=== PATIENT | male | born 2000 | race Caucasian/White ===

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

== ENCOUNTER 2021-09-12 13:14 | Emergency (ER) | payer BC ==
--- NOTE | 2021-09-12 14:10 | XRAY ---
Indication: Short of breath. Anxiety. Comparison: None Portable chest demonstrates mild bilateral mid to lower lung hazy interstitial alveolar opacities without consolidation/large effusion. Heart not enlarged. Bony thorax intact with mild dextroscoliosis.
[2021-09-12] MEDS ORDERED: Ativan 1 MG PO ONE (14:19)
[2021-09-12] MEDS ORDERED: Sodium Chloride 0.9% 1000 ML 1,000 ML IV STA (14:19)
[2021-09-12] MEDS ORDERED: Ativan 1 MG ONE (14:26)
[2021-09-12] MEDS ORDERED: Sodium Chloride 0.9% 1000 ML 1,000 ML ONE (14:26)
[2021-09-12 14:37] LABS: Absolute Neutrophil Ct (ANC) 4.97 (1.4-6.9); Basophil (Absolute #) 0.02 (0-0.4); Eosinophil % 0.7 % (0.00-5.0); Eosinophil (Absolute #) 0.05 (0-0.5); Hematocrit 46.2 % (42-50); Hemoglobin 16.1 gm/dl (12.5-18.0); Lymphocyte (Absolute #) 1.39 (1.0-4.6); Lymphocytes % 20.4 % (24.0-44.0); Mean Cell Volume 81.8 fl (78-100); Mean Corpuscular Hemoglobin 28.5 pg (26-32); Mean Corpuscular Hgb Concent. 34.8 g/dl (32-36); Mean Platelet Volume 8.7 fl (7.5-11.0); Monocyte (Absolute #) 0.39 (0.0-1.3); Monocytes % 5.7 % (0.0-12.0); Neutrophil % 72.9 % (36.0-66.0); Platelet Count 349 K/mm3 (150-450); Red Blood Count 5.65 M/mm3 (4.1-5.6); White Blood Count 6.8 K/mm3 (4.0-10.5)
[2021-09-12 14:55] LABS: COVID AG -BINAX NOW RAPID TEST NEGATIVE (NEGATIVE)
[2021-09-12 15:03] LABS: Amphetamine,Urine NEGATIVE (NEGATIVE); Barbiturate,Urine NEGATIVE (NEGATIVE); Benzodiazepine,Urine NEGATIVE (NEGATIVE); Cocaine,Urine NEGATIVE (NEGATIVE); Methadone,Urine NEGATIVE (NEGATIVE); Opiate,Urine NEGATIVE (NEGATIVE); PCP,Urine NEGATIVE (NEGATIVE); THC,Urine NEGATIVE (NEGATIVE)
[2021-09-12 15:20] VITALS: O2SAT 97
[2021-09-12 15:26] LABS: ALBUMIN 4.3 g/dL (3.5-5.0); ALKALINE PHOSPHATASE 70 U/L (38-126); ANION GAP 13.6 MEQ/L (5-15); BLOOD UREA NITROGEN 8 mg/dL (9-20); CHLORIDE 102 mmol/L (98-107); Carbon Dioxide 27 mmol/L (22-30); Creatinine 1 0.74 mg/dL (0.66-1.25); EST GLOMERULAR FILTRATION RATE > 60.0 ML/MIN; Glucose 87 mg/dL (74-106); MAGNESIUM 1.8 mg/dL (1.6-2.3); Potassium 3.9 mmol/L (3.5-5.1); SGOT/AST 25 U/L (17-59); SGPT/ALT 35 U/L (0-50); SODIUM 139 mmol/L (137-145); Total Protein 7.3 g/dL (6.3-8.2)
[2021-09-12 16:41] VITALS: BP 128/79; PULSE 95
--- NOTE | 2021-09-12 16:46 | XRAY ---
Indication: Short of breath. Elevated d-dimer. Anxiety. Multiple contiguous axial images obtained through the chest using 100 cc Isovue 370 contrast and PE protocol. Comparison: None There is good opacification of the pulmonary arteries to include the lobar and segmental branches. No pulmonary embolus. Heart not enlarged. Aorta is normal in course and caliber. No pathologic mediastinal/hilar lymphadenopathy. Lungs demonstrates mild bilateral dependent atelectasis greatest in the lung bases. No suspicious pulmonary mass, infiltrate, consolidation, effusion, or pneumothorax. Bony thorax intact. Limited upper abdomen demonstrates fatty liver. Impression: 1. Negative pulmonary embolus. No acute cardiopulmonary abnormalities. 2. Fatty liver.
--- NOTE | 2021-09-12 17:25 | ERPHSYRPT ---
- History of Present Illness Time Seen by Provider: 09/12/21 13:22 Source: patient Exam Limitations: no limitations Patient Subjective Stated Complaint: pt reports anxiety beginning this morning shortly after he arrived at work, states at 0815 began to have trouble breathing and his chest felt tight, pt decided it was best not to drive home and went to his brothers to rest. pt states after about an hour he was not feeling better so his brother drove him home, pt reports once he got home he began having diffculty with arm numbness and trouble walking upstairs to his room, reports his brother was holding him up using his right arm and now complains of some right upper arm and shoulder pain, pt family is concerned so pt is here for eval Triage Nursing Assessment: pt is aox3, appears in no acute distress, pupils perrl, afebrile, resps easy and non labored, cap refill < 3 seconds, radial pulses strong and equal, pt tachycardis, pt skin pink warm dry. Physician History: 21 years old with a history of anxiety presented in the ER after he started to feel shortness of breath, throat closing sensation, chest tightness pressure when he was at work almost 2 hours ago. Patient reports he went home and it did not go away and started to feel tingly sensations in the fingers and lower extremities. He also started to feel weak all over and was having difficulty ambulation with falls. Denies any focal weakness but all over. Patient reports having history of anxiety and a lot of stress lately. Patient reports h takes Risperdal and fluoxetine and is out of respite all for almost 1 week. Timing/Duration: today Activities at Onset: activity Severity of Dyspnea-Max: moderate Severity of Dyspnea-Current: mild Modifying Factors: Worsens With: activity Associated Symptoms: anxiety, chest pain/discomfort, dizziness, lightheadedness, tightness Allergies/Adverse Reactions: amoxicillin Allergy (Intermediate, Verified 09/12/21 13:34) Rash Home Medications: Dexmethylphenidate HCl [Dexmethylphenidate HCl ER] 20 mg PO DAILY 09/12/21 [History] Fluoxetine HCl 20 mg [Prozac 20 MG] 20 mg PO DAILY 09/12/21 [History] risperiDONE [Risperdal] 0.5 mg PO DAILY 09/12/21 [History] Hx Tetanus, Diphtheria Vaccination/Date Given: Yes Hx Influenza Vaccination/Date Given: No Hx Pneumococcal Vaccination/Date Given: No Immunizations Up to Date: Yes Travel Risk - International Travel Have you traveled outside of the country in past 3 weeks: No - Coronavirus Screening Are you exhibiting any of the following symptoms?: No Close contact with a COVID-19 positive Pt in past 14-21 Days: No - Vaccine Status Have you recieved a Covid-19 vaccination: Yes 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 - Vaccination Dates Date of 2cond Vaccination (if applicable): unk - Review of Systems Constitutional: Fatigue, Weakness Eyes: No Symptoms Ears, Nose, & Throat: No Symptoms Respiratory: Dyspnea Cardiac: Chest Pain, Palpitations Abdominal/Gastrointestinal: No Symptoms Genitourinary Symptoms: No Symptoms Musculoskeletal: No Symptoms Skin: No Symptoms Neurological: Dizziness Psychological: No Symptoms Endocrine: No Symptoms Hematologic/Lymphatic: No Symptoms Immunological/Allergic: No Symptoms - Past Medical History Pertinent Past Medical History: Yes Psycho-Social History: Anxiety, Bipolar, Depression Male Reproductive Disorders: No Pertinent History Other Medical History: acne - Past Surgical History Past Surgical History: No - Social History Smoking Status: Never smoker Exposure to second hand smoke: No Drug Use: none Patient Lives Alone: No - Nursing Vital Signs Nursing Vital Signs: Initial Vital Signs Temperature 99.4 F 09/12/21 13:21 Pulse Rate 113 H 09/12/21 13:21 Respiratory Rate 18 09/12/21 13:21 Blood Pressure 141/86 09/12/21 13:21 O2 Sat by Pulse Oximetry 98 09/12/21 13:21 Pain Scale Pain Intensity 5 - Physical Exam General Appearance: no apparent distress, alert, anxiety Eye Exam: PERRL/EOMI, eyes nml inspection Ears, Nose, Throat Exam: hearing grossly normal, normal ENT inspection, normal pharynx Neck Exam: normal inspection, non-tender, supple, full range of motion Respiratory Exam: normal breath sounds, lungs clear Cardiovascular/Chest Exam: normal heart sounds, tachycardia Abdominal/Gastrointestinal Exam: soft, normal bowel sounds Extremity Exam: non-tender, normal range of motion Neurologic Exam: alert, oriented x 3, cooperative, environmental officer II-XII nml as tested, No normal mood/affect Skin Exam: normal color SpO2 Interpretation: normal SpO2: 97 O2 Delivery: Room Air - Course EKG Interpreted by Me: RATE ([id number]), Sinus Tach, NORMAL AXIS, NORMAL INTERVALS, NORMAL QRS Ordered Tests: Active Orders 24 hr Category Date Time Status Kicking Machine Operator STAT Care 09/12/21 13:54 Active EKG-ER Only STAT Care 09/12/21 13:53 Active IV Insertion STAT Care 09/12/21 13:53 Active CHEST 1 VIEW (PORTABLE) Stat Exams 09/12/21 13:53 Completed CHEST WITH CONTRAST [CT] Stat Exams 09/12/21 16:03 Completed CBC W DIFF Stat Lab 09/12/21 14:35 Completed CMP Stat Lab 09/12/21 14:35 Completed COVID AG-BINAX NOW RAPID TEST Stat Lab 09/12/21 14:33 Completed D-DIMER QUANTITATIVE Stat Lab 09/12/21 14:35 Completed MAGNESIUM Stat Lab 09/12/21 14:35 Completed TROPONIN Q3H Lab 09/12/21 14:35 Completed TROPONIN Q3H Lab 09/12/21 17:00 Received TROPONIN Q3H Lab 09/12/21 20:00 Ordered TROPONIN Q3H Lab 09/12/21 23:00 Ordered TROPONIN Q3H Lab 09/13/21 02:00 Ordered Urine Triage Profile Stat Lab 09/12/21 13:57 Completed Medication Summary Discontinued Medications Generic Name Dose Route Start Last Admin Trade Name Freq PRN Reason Stop Dose Admin Sodium Chloride 1,000 mls @ 999 mls/hr 09/12/21 14:19 09/12/21 16:47 Sodium Chloride 0.9% 1000 Ml IV 09/12/21 15:19 Infused .Q1H1M STA Infusion Sodium Chloride Confirm 09/12/21 14:26 Sodium Chloride 0.9% 1000 Ml Administered 09/12/21 14:27 Dose 1,000 mls @ ud .ROUTE .STK-MED ONE Lorazepam 1 mg 09/12/21 14:19 09/12/21 14:29 Lorazepam 1 Mg Tablet PO 09/12/21 14:20 1 mg STAT ONE Administration Lorazepam Confirm 09/12/21 14:26 Lorazepam 1 Mg Tablet Administered 09/12/21 14:27 Dose 1 mg .ROUTE .STK-MED ONE Lab/Rad Data: Laboratory Result Diagrams 09/12/21 14:35 09/12/21 14:35 Laboratory Results 09/12/21 09/12/21 09/12/21 Range/Units 14:35 14:35 14:35 WBC (4.0-10.5) K/mm3 RBC (4.1-5.6) M/mm3 Hgb (12.5-18.0) gm/dl Hct (42-50) % MCV (78-100) fl MCH (26-32) pg MCHC (32-36) g/dl RDW (11.5-14.0) % Plt Count (150-450) K/mm3 MPV (7.5-11.0) fl Gran % (36.0-66.0) % Eos # (Auto) (0-0.5) Absolute Lymphs (auto) (1.0-4.6) Absolute Monos (auto) (0.0-1.3) Lymphocytes % (24.0-44.0) % Monocytes % (0.0-12.0) % Eosinophils % (0.00-5.0) % Basophils % (0.0-0.4) % Absolute Granulocytes (1.4-6.9) Basophils # (0-0.4) D-Dimer 943 H* (215-500) ng/mL Sodium 139 (137-145) mmol/L Potassium 3.9 (3.5-5.1) mmol/L Chloride 102 (98-107) mmol/L Carbon Dioxide 27 (22-30) mmol/L Anion Gap 13.6 (5-15) MEQ/L BUN 8 L (9-20) mg/dL Creatinine 0.74 (0.66-1.25) mg/dL Estimated GFR > 60.0 ML/MIN Glucose 87 (74-106) mg/dL Calcium 9.0 (8.4-10.2) mg/dL Magnesium 1.8 (1.6-2.3) mg/dL Total Bilirubin 0.60 (0.2-1.3) mg/dL AST 25 (17-59) U/L ALT 35 (0-50) U/L Alkaline Phosphatase 70 (38-126) U/L Troponin I < 0.012 (0.000-0.034) ng/mL Serum Total Protein 7.3 (6.3-8.2) g/dL Albumin 4.3 (3.5-5.0) g/dL Urine Opiates Level (NEGATIVE) Ur Methadone (NEGATIVE) Urine Barbiturates (NEGATIVE) Ur Phencyclidine (PCP) (NEGATIVE) Urine Amphetamine (NEGATIVE) U Benzodiazepine Level (NEGATIVE) Urine Cocaine (NEGATIVE) Urine Marijuana (THC) (NEGATIVE) SARS-CoV-2 Ag (Rapid) (NEGATIVE) 09/12/21 09/12/21 09/12/21 Range/Units 14:35 14:33 13:57 WBC 6.8 (4.0-10.5) K/mm3 RBC 5.65 H (4.1-5.6) M/mm3 Hgb 16.1 (12.5-18.0) gm/dl Hct 46.2 (42-50) % MCV 81.8 (78-100) fl MCH 28.5 (26-32) pg MCHC 34.8 (32-36) g/dl RDW 13.0 (11.5-14.0) % Plt Count 349 (150-450) K/mm3 MPV 8.7 (7.5-11.0) fl Gran % 72.9 H (36.0-66.0) % Eos # (Auto) 0.05 (0-0.5) Absolute Lymphs (auto) 1.39 (1.0-4.6) Absolute Monos (auto) 0.39 (0.0-1.3) Lymphocytes % 20.4 L (24.0-44.0) % Monocytes % 5.7 (0.0-12.0) % Eosinophils % 0.7 (0.00-5.0) % Basophils % 0.3 (0.0-0.4) % Absolute Granulocytes 4.97 (1.4-6.9) Basophils # 0.02 (0-0.4) D-Dimer (215-500) ng/mL Sodium (137-145) mmol/L Potassium (3.5-5.1) mmol/L Chloride (98-107) mmol/L Carbon Dioxide (22-30) mmol/L Anion Gap (5-15) MEQ/L BUN (9-20) mg/dL Creatinine (0.66-1.25) mg/dL Estimated GFR ML/MIN Glucose (74-106) mg/dL Calcium (8.4-10.2) mg/dL Magnesium (1.6-2.3) mg/dL Total Bilirubin (0.2-1.3) mg/dL AST (17-59) U/L ALT (0-50) U/L Alkaline Phosphatase (38-126) U/L Troponin I (0.000-0.034) ng/mL Serum Total Protein (6.3-8.2) g/dL Albumin (3.5-5.0) g/dL Urine Opiates Level NEGATIVE (NEGATIVE) Ur Methadone NEGATIVE (NEGATIVE) Urine Barbiturates NEGATIVE (NEGATIVE) Ur Phencyclidine (PCP) NEGATIVE (NEGATIVE) Urine Amphetamine NEGATIVE (NEGATIVE) U Benzodiazepine Level NEGATIVE (NEGATIVE) Urine Cocaine NEGATIVE (NEGATIVE) Urine Marijuana (THC) NEGATIVE (NEGATIVE) SARS-CoV-2 Ag (Rapid) NEGATIVE (NEGATIVE) - Progress Progress: improved, re-examined Air Movement: good Progress Note: 09/12/21 17:25 Ruled out acute coronary syndrome, pneumonia, pneumothorax, pulmonary embolism, dissection. Nonfocal neuro exam. Given Ativan and patient is feeling better. I believe his symptoms are more of a secondary anxiety attack. Recommended continue with current medications and outpatient follow-up. Discussed signs symptoms of worsening needing return to ER which he seems understanding. Blood Culture(s) Obtained: No Antibiotics given: No Counseled pt/family regarding: lab results, diagnosis, need for follow-up, rad results - Departure Departure Disposition: Home Clinical Impression: Anxiety attack, Atypical chest pain Condition: Stable Critical Care Time: No Referrals: STEPHANIE SHELLEY MD [Primary Care Provider] - Follow up/PCP as directed (1-2 days for reevaluation) Instructions: Anxiety, Adult (DC), Chest Pain (DC) Additional Instructions: Follow-up with primary care for reevaluation. Return to ER for having chest pain palpitations or shortness of breath. Get your medication refilled.
== END 2021-09-12 17:47 | disposition home or self-care (01) ==
LOC: ED 13:14
DX: F41.0 Panic disorder [episodic paroxysmal anxiety] (principal); R07.89 Other chest pain; R06.02 Shortness of breath; R53.1 Weakness; R42 Dizziness and giddiness; Z79.899 Other long term (current) drug therapy
CPT/HCPCS: 36000; 36415; 71045; 71260; 80053; 80307; 83735; 84484; 85025; 85379; 93005; 93041; 96360; 99000; 99284; A9270-GY

== ENCOUNTER 2021-11-25 19:17 | Emergency (ER) | payer BC, SELFPAY ==
[2021-11-25] MEDS ORDERED: Adenocard IV 6 MG/2 ML IV ONE ×4 (19:23→19:35)
--- NOTE | 2021-11-25 19:23 | ERPHSYRPT ---
- History of Present Illness Time Seen by Provider: 11/25/21 19:23 Source: patient Exam Limitations: no limitations Physician History: This is a 21-year-old white male who has had episodes of tachycardia in the past. His primary care doctor is Dr. Shelley. 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 Patient states that there is tachycardia that runs in his family. Patient is not on any medication to help prevent or treat tachycardia. He presents in SVT. It was sudden in onset without any particular activity at approximately 5 PM. His heart rate upon arrival to the emergency department as high as 205 bpm. He felt a little short of breath. He felt tired and weak as well. He was having mild chest pain at the time. Patient does take an amphetamine that is a prescription medication for him. He has a history of anxiety, bipolar disorder and depression. He denies any illicit drug use. Timing/Duration: today Activities at Onset: none Location: substernal, central Chest Pain Radiation: no radiation Severity of Pain-Max: mild Severity of Pain-Current: mild Modifying Factors: Improves With: nothing Nitro Today/Relief: no nitro taken today Aspirin Treatment Today: no aspirin today Associated Symptoms: shortness of breath (Mild) Prior Chest Pain/Cardiac Workup: no prior chest pain, no prior cardiac workup Allergies/Adverse Reactions: amoxicillin Allergy (Intermediate, Verified 09/12/21 13:34) Rash Home Medications: Dexmethylphenidate HCl [Dexmethylphenidate HCl ER] 20 mg PO DAILY 09/12/21 [History] Fluoxetine HCl 20 mg [Prozac 20 MG] 20 mg PO DAILY 09/12/21 [History] risperiDONE [Risperdal] 0.5 mg PO DAILY 09/12/21 [History] Hx Tetanus, Diphtheria Vaccination/Date Given: Yes Hx Influenza Vaccination/Date Given: No Hx Pneumococcal Vaccination/Date Given: No Travel Risk - International Travel Have you traveled outside of the country in past 3 weeks: No - Coronavirus Screening Are you exhibiting any of the following symptoms?: No Close contact with a COVID-19 positive Pt in past 14-21 Days: No - Vaccine Status Have you recieved a Covid-19 vaccination: Yes Locomotive Oiler: Moderna - Vaccination Dates Date of 2cond Vaccination (if applicable): unk - Review of Systems Constitutional: Weakness Eyes: No Symptoms Ears, Nose, & Throat: No Symptoms Respiratory: Dyspnea Cardiac: Palpitations, Other Abdominal/Gastrointestinal: No Symptoms (But heart rate) Genitourinary Symptoms: No Symptoms Musculoskeletal: No Symptoms Skin: No Symptoms Neurological: No Symptoms Psychological: No Symptoms Endocrine: No Symptoms Hematologic/Lymphatic: No Symptoms Immunological/Allergic: No Symptoms All Other Systems: Reviewed and Negative - Past Medical History Pertinent Past Medical History: Yes Psycho-Social History: Anxiety, Bipolar, Depression Male Reproductive Disorders: No Pertinent History Other Medical History: acne - Past Surgical History Past Surgical History: No - Social History Smoking Status: Never smoker Exposure to second hand smoke: No Drug Use: none Patient Lives Alone: No - Nursing Vital Signs Nursing Vital Signs: Initial Vital Signs Temperature 98.4 F 11/25/21 19:18 Pulse Rate 190 H 11/25/21 19:18 Respiratory Rate 19 11/25/21 19:18 Blood Pressure 121/93 11/25/21 19:18 O2 Sat by Pulse Oximetry 96 11/25/21 19:18 Pain Scale Pain Intensity 0 - Physical Exam General Appearance: mild distress, alert, anxiety Eye Exam: PERRL/EOMI, eyes nml inspection Ears, Nose, Throat Exam: normal ENT inspection, moist mucous membranes Neck Exam: normal inspection, non-tender, supple, full range of motion Respiratory Exam: normal breath sounds, chest tenderness, lungs clear, airway intact, No respiratory distress Cardiovascular Exam: tachycardia Gastrointestinal/Abdomen Exam: soft, normal bowel sounds, No tenderness Rectal Exam: not done Back Exam: normal inspection, normal range of motion, No CVA tenderness, No vertebral tenderness Extremity Exam: normal inspection, normal range of motion, pelvis stable Neurologic Exam: alert, oriented x 3, cooperative, manager property II-XII nml as tested, normal mood/affect, nml cerebellar function, nml station & gait, sensation nml Skin Exam: normal color, warm, dry Lymphatic Exam: No adenopathy SpO2 Interpretation: normal O2 Delivery: Room Air - Course Nursing assessment & vital signs reviewed: Yes EKG Interpreted by Me: RATE ([id number]), SVT, NORMAL INTERVALS, NORMAL QRS, NORMAL ST- T, Other (SVT no ischemic changes.) Ordered Tests: Active Orders 24 hr Category Date Time Status Supervisor Underwriting Clerks STAT Care 11/25/21 19:36 Active EKG-ER Only STAT Care 11/25/21 19:23 Active IV Insertion STAT Care 11/25/21 19:23 Active Pulse Oximetry (ED) STAT Care 11/25/21 19:23 Active CHEST WITH CONTRAST [CT] Stat Exams 11/25/21 20:36 Taken CBC W DIFF Stat Lab 11/25/21 19:30 Completed CMP Stat Lab 11/25/21 19:30 Completed D-DIMER QUANTITATIVE Stat Lab 11/25/21 19:30 Completed Lactic Acid Stat Lab 11/25/21 19:42 Completed MAGNESIUM Stat Lab 11/25/21 19:30 Completed TROPONIN Q3H Lab 11/25/21 19:30 Completed TROPONIN Q3H Lab 11/25/21 22:30 Ordered TROPONIN Q3H Lab 11/26/21 01:30 Ordered TROPONIN Q3H Lab 11/26/21 04:30 Ordered TROPONIN Q3H Lab 11/26/21 07:30 Ordered Urine Triage Profile Stat Lab 11/25/21 20:02 Completed Medication Summary Generic Name Dose Route Start Last Admin Trade Name Freq PRN Reason Stop Dose Admin Sodium Chloride 1,000 mls @ 100 mls/hr 11/25/21 19:30 11/25/21 19:27 Sodium Chloride 0.9% 1000 Ml IV 12/25/21 19:29 100 mls/hr .Q10H NELA Administration Discontinued Medications Generic Name Dose Route Start Last Admin Trade Name Freq PRN Reason Stop Dose Admin Adenosine 6 mg 11/25/21 19:23 11/25/21 19:28 Adenosine 6 Mg/2 Ml Vial IV 11/25/21 19:24 6 mg STAT ONE Administration Adenosine Confirm 11/25/21 19:25 Adenosine 6 Mg/2 Ml Vial Administered 11/25/21 19:26 Dose 6 mg IV .STK-MED ONE Adenosine Confirm 11/25/21 19:29 Adenosine 6 Mg/2 Ml Vial Administered 11/25/21 19:30 Dose 12 mg IV .STK-MED ONE Adenosine 12 mg 11/25/21 19:35 11/25/21 19:31 Adenosine 6 Mg/2 Ml Vial IV 11/25/21 19:36 12 mg STAT ONE Administration Enoxaparin Sodium 100 mg 11/25/21 21:50 11/25/21 21:54 Enoxaparin Sodium 120 Mg/0.8 Ml Syringe SQ 11/25/21 21:51 100 mg STAT STA Administration Enoxaparin Sodium Confirm 11/25/21 21:53 Enoxaparin Sodium 120 Mg/0.8 Ml Syringe Administered 11/25/21 21:54 Dose 120 mg SQ .STK-MED ONE Metoprolol Tartrate 5 mg 11/25/21 19:50 11/25/21 20:22 Metoprolol Tartrate 5 Mg/5 Ml Injection IV 11/25/21 19:51 5 mg STAT ONE Administration Metoprolol Tartrate Confirm 11/25/21 20:21 Metoprolol Tartrate 5 Mg/5 Ml Injection Administered 11/25/21 20:22 Dose 5 mg IV .STK-MED ONE Lab/Rad Data: Laboratory Result Diagrams 11/25/21 19:30 11/25/21 19:30 Laboratory Results 11/25/21 11/25/21 11/25/21 Range/Units 20:02 20:02 19:42 WBC (4.0-10.5) K/mm3 RBC (4.1-5.6) M/mm3 Hgb (12.5-18.0) gm/dl Hct (42-50) % MCV (78-100) fl MCH (26-32) pg MCHC (32-36) g/dl RDW (11.5-14.0) % Plt Count (150-450) K/mm3 MPV (7.5-11.0) fl Gran % (36.0-66.0) % Eos # (Auto) (0-0.5) Absolute Lymphs (auto) (1.0-4.6) Absolute Monos (auto) (0.0-1.3) Lymphocytes % (24.0-44.0) % Monocytes % (0.0-12.0) % Eosinophils % (0.00-5.0) % Basophils % (0.0-0.4) % Absolute Granulocytes (1.4-6.9) Basophils # (0-0.4) D-Dimer (215-500) ng/mL Sodium (137-145) mmol/L Potassium (3.5-5.1) mmol/L Chloride (98-107) mmol/L Carbon Dioxide (22-30) mmol/L Anion Gap (5-15) MEQ/L BUN (9-20) mg/dL Creatinine (0.66-1.25) mg/dL Estimated GFR ML/MIN Glucose (74-106) mg/dL Lactic Acid 1.4 (0.4-2.0) Calcium (8.4-10.2) mg/dL Magnesium (1.6-2.3) mg/dL Total Bilirubin (0.2-1.3) mg/dL AST (17-59) U/L ALT (0-50) U/L Alkaline Phosphatase (38-126) U/L Troponin I (0.000-0.034) ng/mL Serum Total Protein (6.3-8.2) g/dL Albumin (3.5-5.0) g/dL Urinalys Dipstick Clnc MAIN LAB Urine Color YELLOW (YELLOW) Urine Appearance CLEAR (CLEAR) Urine pH 7.0 (5-6) Ur Specific [place] 1.015 (1.005-1.025) POC Urine Protein Conf NEGATIVE (Negative) Urine Ketones NEGATIVE (NEGATIVE) Urine Nitrite NEGATIVE (NEGATIVE) Urine Bilirubin NEGATIVE (NEGATIVE) Urine Urobilinogen 0.2 (0-1) mg/dL Urine Leukocytes NEGATIVE (NEGATIVE) Urine WBC (Auto) 0-2 (0-5) /HPF Urine RBC NEGATIVE (0-5) Rufino/ul Ur Culture Indicated? NO Urine Glucose NEGATIVE (NEGATIVE) mg/dL Urine Opiates Level NEGATIVE (NEGATIVE) Ur Methadone NEGATIVE (NEGATIVE) Urine Barbiturates NEGATIVE (NEGATIVE) Ur Phencyclidine (PCP) NEGATIVE (NEGATIVE) Urine Amphetamine NEGATIVE (NEGATIVE) U Benzodiazepine Level NEGATIVE (NEGATIVE) Urine Cocaine NEGATIVE (NEGATIVE) Urine Marijuana (THC) NEGATIVE (NEGATIVE) 11/25/21 11/25/21 11/25/21 Range/Units 19:30 19:30 19:30 WBC (4.0-10.5) K/mm3 RBC (4.1-5.6) M/mm3 Hgb (12.5-18.0) gm/dl Hct (42-50) % MCV (78-100) fl MCH (26-32) pg MCHC (32-36) g/dl RDW (11.5-14.0) % Plt Count (150-450) K/mm3 MPV (7.5-11.0) fl Gran % (36.0-66.0) % Eos # (Auto) (0-0.5) Absolute Lymphs (auto) (1.0-4.6) Absolute Monos (auto) (0.0-1.3) Lymphocytes % (24.0-44.0) % Monocytes % (0.0-12.0) % Eosinophils % (0.00-5.0) % Basophils % (0.0-0.4) % Absolute Granulocytes (1.4-6.9) Basophils # (0-0.4) D-Dimer 1093 H* (215-500) ng/mL Sodium 140 (137-145) mmol/L Potassium 4.4 (3.5-5.1) mmol/L Chloride 103 (98-107) mmol/L Carbon Dioxide 25 (22-30) mmol/L Anion Gap 16.6 H (5-15) MEQ/L BUN 10 (9-20) mg/dL Creatinine 0.81 (0.66-1.25) mg/dL Estimated GFR > 60.0 ML/MIN Glucose 94 (74-106) mg/dL Lactic Acid (0.4-2.0) Calcium 9.8 (8.4-10.2) mg/dL Magnesium 1.9 (1.6-2.3) mg/dL Total Bilirubin 0.80 (0.2-1.3) mg/dL AST 32 (17-59) U/L ALT 44 (0-50) U/L Alkaline Phosphatase 84 (38-126) U/L Troponin I < 0.012 (0.000-0.034) ng/mL Serum Total Protein 8.1 (6.3-8.2) g/dL Albumin 4.7 (3.5-5.0) g/dL Urinalys Dipstick Clnc Urine Color (YELLOW) Urine Appearance (CLEAR) Urine pH (5-6) Ur Specific Monroe (1.005-1.025) POC Urine Protein Conf (Negative) Urine Ketones (NEGATIVE) Urine Nitrite (NEGATIVE) Urine Bilirubin (NEGATIVE) Urine Urobilinogen (0-1) mg/dL Urine Leukocytes (NEGATIVE) Urine WBC (Auto) (0-5) /HPF Urine RBC (0-5) Rufino/ul Ur Culture Indicated? Urine Glucose (NEGATIVE) mg/dL Urine Opiates Level (NEGATIVE) Ur Methadone (NEGATIVE) Urine Barbiturates (NEGATIVE) Ur Phencyclidine (PCP) (NEGATIVE) Urine Amphetamine (NEGATIVE) U Benzodiazepine Level (NEGATIVE) Urine Cocaine (NEGATIVE) Urine Marijuana (THC) (NEGATIVE) 11/25/21 Range/Units 19:30 WBC 9.9 (4.0-10.5) K/mm3 RBC 5.66 H (4.1-5.6) M/mm3 Hgb 16.0 (12.5-18.0) gm/dl Hct 46.8 (42-50) % MCV 82.7 (78-100) fl MCH 28.3 (26-32) pg MCHC 34.2 (32-36) g/dl RDW 13.1 (11.5-14.0) % Plt Count 327 (150-450) K/mm3 MPV 8.9 (7.5-11.0) fl Gran % 68.5 H (36.0-66.0) % Eos # (Auto) 0.09 (0-0.5) Absolute Lymphs (auto) 2.34 (1.0-4.6) Absolute Monos (auto) 0.63 (0.0-1.3) Lymphocytes % 23.8 L (24.0-44.0) % Monocytes % 6.4 (0.0-12.0) % Eosinophils % 0.9 (0.00-5.0) % Basophils % 0.4 (0.0-0.4) % Absolute Granulocytes 6.75 (1.4-6.9) Basophils # 0.04 (0-0.4) D-Dimer (215-500) ng/mL Sodium (137-145) mmol/L Potassium (3.5-5.1) mmol/L Chloride (98-107) mmol/L Carbon Dioxide (22-30) mmol/L Anion Gap (5-15) MEQ/L BUN (9-20) mg/dL Creatinine (0.66-1.25) mg/dL Estimated GFR ML/MIN Glucose (74-106) mg/dL Lactic Acid (0.4-2.0) Calcium (8.4-10.2) mg/dL Magnesium (1.6-2.3) mg/dL Total Bilirubin (0.2-1.3) mg/dL AST (17-59) U/L ALT (0-50) U/L Alkaline Phosphatase (38-126) U/L Troponin I (0.000-0.034) ng/mL Serum Total Protein (6.3-8.2) g/dL Albumin (3.5-5.0) g/dL Urinalys Dipstick Clnc Urine Color (YELLOW) Urine Appearance (CLEAR) Urine pH (5-6) Ur Specific Monroe (1.005-1.025) POC Urine Protein Conf (Negative) Urine Ketones (NEGATIVE) Urine Nitrite (NEGATIVE) Urine Bilirubin (NEGATIVE) Urine Urobilinogen (0-1) mg/dL Urine Leukocytes (NEGATIVE) Urine WBC (Auto) (0-5) /HPF Urine RBC (0-5) Rufino/ul Ur Culture Indicated? Urine Glucose (NEGATIVE) mg/dL Urine Opiates Level (NEGATIVE) Ur Methadone (NEGATIVE) Urine Barbiturates (NEGATIVE) Ur Phencyclidine (PCP) (NEGATIVE) Urine Amphetamine (NEGATIVE) U Benzodiazepine Level (NEGATIVE) Urine Cocaine (NEGATIVE) Urine Marijuana (THC) (NEGATIVE) - Progress Progress: improved, re-examined Air Movement: good Progress Note: 11/25/21 19:47 Second EKG was performed today on 11/25/2021 at 7:32 PM after 6 mg intravenous adenosine as well as 12 mg intravenous adenosine. Patient is now sinus tachyc ardia with a heart rate of 122 bpm with P waves are visible. There are no acute ischemic changes. 11/25/21 22:09 CAT scan of the chest with contrast shows a lingular, nonocclusive pulmonary embolus. It is tiny. Medical decision making: I spoke with Dr. Shelley regarding the patient's clinical presentation, his current clinical status and the results of the radiographic studies and laboratory work-up as well as his EKG. Dr. Shelley states that we can treat him as an outpatient. I agree. We will give him Lovenox tonight and he is to start Eliquis 10 mg orally twice a day for 7 days. He is to call Dr. Shelley's office tomorrow to make arrangements for cardiology follow-up and for more Eliquis medication/prescription. We will order a 48-hour Holter monitor tonight. Blood Culture(s) Obtained: No Antibiotics given: No Counseled pt/family regarding: lab results, diagnosis, need for follow-up - Departure Departure Disposition: Home Clinical Impression: SVT (supraventricular tachycardia), Pulmonary embolus Condition: Stable Critical Care Time: Yes Critical Care Time(excluding separately billable procedures): Critical 30-74 mins (35) Referrals: STEPHANIE SHELLEY MD [Primary Care Provider] - Follow up/PCP as directed Additional Instructions: Stop your Focalin (amphetamine) medication. pick up your Eliquis prescription. Wear your Holter monitor for 48 hours per respiratory therapy instructions. Call Dr. Shelley's office tomorrow to make arrangements for follow-up with his office, with cardiology, and for additional prescription for Eliquis. Forms: Work/School Release Form Prescriptions: Apixaban [Eliquis] 10 mg PO BID #14 tab
[2021-11-25] MEDS ORDERED: Sodium Chloride 0.9% 1000 ML 1,000 ML ONE (19:25)
[2021-11-25] MEDS ORDERED: Sodium Chloride 0.9% 1000 ML 1,000 ML IV SCH (19:30)
[2021-11-25 19:49] LABS: Absolute Neutrophil Ct (ANC) 6.75 (1.4-6.9); Basophil (Absolute #) 0.04 (0-0.4); Eosinophil % 0.9 % (0.00-5.0); Eosinophil (Absolute #) 0.09 (0-0.5); Hematocrit 46.8 % (42-50); Lymphocyte (Absolute #) 2.34 (1.0-4.6); Lymphocytes % 23.8 % (24.0-44.0); Mean Cell Volume 82.7 fl (78-100); Mean Corpuscular Hemoglobin 28.3 pg (26-32); Mean Corpuscular Hgb Concent. 34.2 g/dl (32-36); Mean Platelet Volume 8.9 fl (7.5-11.0); Monocyte (Absolute #) 0.63 (0.0-1.3); Monocytes % 6.4 % (0.0-12.0); Neutrophil % 68.5 % (36.0-66.0); Platelet Count 327 K/mm3 (150-450); Red Blood Count 5.66 M/mm3 (4.1-5.6); Red Cell Distribution Width 13.1 % (11.5-14.0); White Blood Count 9.9 K/mm3 (4.0-10.5)
[2021-11-25] MEDS ORDERED: LOPRESSOR 5 MG/5 ML INJECTION IV ONE ×2 (19:50→20:21)
[2021-11-25 19:59] LABS: ALBUMIN 4.7 g/dL (3.5-5.0); ALKALINE PHOSPHATASE 84 U/L (38-126); ANION GAP 16.6 MEQ/L (5-15); BLOOD UREA NITROGEN 10 mg/dL (9-20); CHLORIDE 103 mmol/L (98-107); Calcium 9.8 mg/dL (8.4-10.2); Carbon Dioxide 25 mmol/L (22-30); Creatinine 1 0.81 mg/dL (0.66-1.25); EST GLOMERULAR FILTRATION RATE > 60.0 ML/MIN; Glucose 94 mg/dL (74-106); MAGNESIUM 1.9 mg/dL (1.6-2.3); Potassium 4.4 mmol/L (3.5-5.1); SGOT/AST 32 U/L (17-59); SGPT/ALT 44 U/L (0-50); SODIUM 140 mmol/L (137-145); Total Protein 8.1 g/dL (6.3-8.2)
[2021-11-25 20:49] LABS: WBC 0-2 /HPF (0-5)
[2021-11-25 20:55] LABS: Amphetamine,Urine NEGATIVE (NEGATIVE); Barbiturate,Urine NEGATIVE (NEGATIVE); Benzodiazepine,Urine NEGATIVE (NEGATIVE); Cocaine,Urine NEGATIVE (NEGATIVE); Methadone,Urine NEGATIVE (NEGATIVE); Opiate,Urine NEGATIVE (NEGATIVE); PCP,Urine NEGATIVE (NEGATIVE); THC,Urine NEGATIVE (NEGATIVE)
[2021-11-25 21:00] LABS: Appearance CLEAR (CLEAR); Bilirubin NEGATIVE (NEGATIVE); Glucose NEGATIVE (NEGATIVE); Ketones NEGATIVE (NEGATIVE); Nitrite NEGATIVE (NEGATIVE); Protein,Urine Dip NEGATIVE (Negative); RBC NEGATIVE Ery/ul (0-5); Specific Gravity 1.015 (1.005-1.025); Urobilinogen 0.2 mg/dL (0-1)
[2021-11-25 21:01] LABS: Urine Cultured Indicated? NO
[2021-11-25 21:16] LABS: Dipstick done @ ? MAIN LAB
[2021-11-25] MEDS ORDERED: ENOXAPARIN SODIUM SQ STA (21:50)
[2021-11-25] MEDS ORDERED: ENOXAPARIN SODIUM SQ ONE (21:53)
[2021-11-25 22:03] VITALS: O2SAT 97
[2021-11-25 22:34] VITALS: BP 119/87; PULSE 88
--- NOTE | 2021-11-26 08:52 | XRAY ---
Indication: Tachycardia. Elevated d-dimer. Multiple contiguous images obtained through the chest using 100 cc Isovue 370 contrast and PE protocol. Comparison: September 12, 2021. There is good opacification of the pulmonary arteries to include the lobar and segmental branches. New tiny nonoccluding pulmonary emboli in the distal lingula. Heart is not enlarged. Aorta is normal in course and caliber. No pathologic mediastinal/hilar lymphadenopathy. Lungs again demonstrates minimal bilateral dependent atelectasis. No suspicious pulmonary mass, infiltrate, or effusion. Bony thorax intact. Limited upper abdomen again demonstrates fatty liver. Impression: 1. New nonoccluding lingula pulmonary emboli. 2. Again incidental fatty liver.
== END 2021-11-25 22:43 | disposition home or self-care (01) ==
LOC: ED 19:17
DX: I47.1 Supraventricular tachycardia (principal); I26.99 Other pulmonary embolism without acute cor pulmonale; R07.9 Chest pain, unspecified; R53.83 Other fatigue; R53.1 Weakness; F41.9 Anxiety disorder, unspecified; Z79.01 Long term (current) use of anticoagulants; Z79.899 Other long term (current) drug therapy
CPT/HCPCS: 36000; 36415; 71260; 80053; 80307; 81015; 83605; 83735; 84484; 85025; 85379; 93005; 93041; 93225; 94760; 96372; 96374; 96375; 96376; 99285; 99291; J0153; J1650

== ENCOUNTER 2024-02-08 10:15 | Emergency (ER) | payer BC ==
[2024-02-08 10:33] VITALS: RESP 18; TEMP 98.1
--- NOTE | 2024-02-08 10:58 | ERPHSYRPT ---
- History of Present Illness Historian: patient Exam Limitations: no limitations Patient Subjective Stated Complaint: pt here for n/v almost daily for 9 months, he has been seen by primary and had testing done, is waiting for a referral for GI, Triage Nursing Assessment: pt alert, walked in, resp easy, skin w/d/p. abd soft, no edema noted, moves all ext well Physician History: 23-year-old male with nausea and vomiting for 9 months which is worse over the last week and especially today. He has taken Zofran at home in the past but it has not helped. He has never seen a basket hand weaver or had a GI workup. He has mild epigastric pain but denies hematemesis, diarrhea, melena, and hematochezia. Marijuana use is denied. Fever, cough, and sore throat are also denied. Timing/Duration: other ( 9 months but worse over the last week) Activities at Onset: rest Abdominal Pain Onset Location: epigastric Pain Radiation: no radiation Severity of Pain-Max: mild Severity of Pain-Current: mild Modifying Factors: Improves With: nothing Associated Symptoms: nausea, vomiting Previous symptoms: same symptoms as today Allergies/Adverse Reactions: amoxicillin Allergy (Intermediate, Verified 02/08/24 10:37) Rash Home Medications: Fluoxetine HCl 20 mg [Prozac 20 MG] 20 mg PO DAILY 09/12/21 [History] Budesonide/Formoterol Fumarate [Breyna 160-4.5 Mcg Inhaler] 1 puff DAILY 02/08/24 [History] Omeprazole 20 mg PO DAILY 02/08/24 [History] Hx Tetanus, Diphtheria Vaccination/Date Given: Yes Hx Influenza Vaccination/Date Given: No Hx Pneumococcal Vaccination/Date Given: No Immunizations Up to Date: Yes Travel Risk - International Travel Have you traveled outside of the country in past 3 weeks: No - Emerging Infectious Disease Are you exhibiting symptoms associated with any current EIDs: Yes Symptoms: Abdominal Pain - Review of Systems Constitutional: No Symptoms Eyes: No Symptoms Ears, Nose, & Throat: No Symptoms Respiratory: No Symptoms Cardiac: No Symptoms Genitourinary Symptoms: No Symptoms Musculoskeletal: No Symptoms Skin: No Symptoms Neurological: No Symptoms Psychological: No Symptoms Endocrine: No Symptoms Hematologic/Lymphatic: No Symptoms Immunological/Allergic: No Symptoms - Past Medical History Pertinent Past Medical History: Yes Psycho-Social History: Anxiety, Bipolar, Depression Male Reproductive Disorders: No Pertinent History Other Medical History: acne - Past Surgical History Past Surgical History: No Significant Family History: no pertinent family hx - Social History Smoking Status: Former smoker Exposure to second hand smoke: No Drug Use: none Patient Lives Alone: No - Social Determinants of Health Will the patient participate in the screening: Yes Do you worry about a steady place to live?: No Do you have any problems with any of the following?: No known problems In the past 12 months,have you had to go without utilities?: No Transportation Issues: No Has anyone in your support network made you feel unsafe?: No Have you or anyone in your house had to go without enough: No - Nursing Vital Signs Nursing Vital Signs: Initial Vital Signs Temperature 98.1 F 02/08/24 10:31 Pulse Rate 85 02/08/24 10:31 Respiratory Rate 18 02/08/24 10:31 Blood Pressure 146/93 02/08/24 10:31 O2 Sat by Pulse Oximetry 96 02/08/24 10:31 Pain Scale Pain Intensity 0 mild hypertension - Physical Exam General Appearance: no apparent distress Eye Exam: PERRL/EOMI, eyes nml inspection Ears, Nose, Throat Exam: normal ENT inspection, TMs normal, pharynx normal, moist mucous membranes Neck Exam: normal inspection, non-tender, supple, full range of motion, No meningismus, No mass, No Brudzinski, No Kernig's Respiratory Exam: normal breath sounds, lungs clear, airway intact Cardiovascular Exam: regular rate/rhythm, normal heart sounds, normal peripheral pulses, capillary refill <2 sec, No murmur Gastrointestinal/Abdomen Exam: soft, normal bowel sounds, tenderness ( very mild epigastric tenderness palpation without guarding or rebound) Back Exam: normal inspection, normal range of motion, No CVA tenderness, No vertebral tenderness Extremity Exam: normal inspection, normal range of motion Neurologic Exam: alert, oriented x 3, cooperative, credit risk analytics manager II-XII nml as tested, normal mood/affect, nml cerebellar function, nml station & gait, sensation nml Skin Exam: normal color, warm, dry, No rash Lymphatic Exam: No adenopathy SpO2 Interpretation: normal SpO2: 96 O2 Delivery: Room Air - Course Nursing assessment & vital signs reviewed: Yes Ordered Tests: Active Orders 24 hr Category Date Time Status AMYLASE Stat Lab 02/08/24 11:29 Completed CBC W DIFF Stat Lab 02/08/24 11:29 Completed CMP Stat Lab 02/08/24 11:29 Completed LIPASE Stat Lab 02/08/24 11:29 Completed Lactic Acid Stat Lab 02/08/24 12:11 Completed TROPONIN Q4H Lab 02/08/24 11:29 Completed TROPONIN Q4H Lab 02/08/24 15:00 Ordered TROPONIN Q4H Lab 02/08/24 19:00 Ordered Urine Triage Profile Stat Lab 02/08/24 12:27 Completed Medication Summary Discontinued Medications Generic Name Dose Route Start Last Admin Trade Name Freq PRN Reason Stop Dose Admin Sodium Chloride 1,000 mls @ 999 mls/hr 02/08/24 12:39 02/08/24 12:45 Sodium Chloride 0.9% 1000 Ml IV 02/08/24 13:39 999 mls/hr .Q1H1M STA Administration Sodium Chloride Confirm 02/08/24 12:44 Sodium Chloride 0.9% 1000 Ml Administered 02/08/24 12:45 Dose 1,000 mls @ ud .ROUTE .STK-MED ONE Ondansetron HCl 4 mg 02/08/24 12:39 02/08/24 12:48 Ondansetron Hcl 4 Mg/2 Ml Vial IV 02/08/24 12:40 4 mg STAT ONE Administration Ondansetron HCl Confirm 02/08/24 12:44 Ondansetron Hcl 4 Mg/2 Ml Vial Administered 02/08/24 12:45 Dose 4 mg .ROUTE .STK-MED ONE Lab/Rad Data: Laboratory Result Diagrams 02/08/24 11:29 02/08/24 11:29 Laboratory Results 02/08/24 02/08/24 02/08/24 Range/Units 12:27 12:27 12:11 WBC (4.23-9.07) x10^3/uL RBC (4.63-6.08) x10^6/uL Hgb (13.7-17.5) g/dL Hct (40.1-51.0) % MCV (79.0-92.2) fL MCH (25.7-32.2) pg MCHC (32.3-36.5) g/dL RDW (11.6-14.4) % Plt Count (163-337) x10^3/uL MPV (9.4-12.4) fL Gran % (34.0-67.9) % Immature Gran % (Auto) (0.001-0.429) % Nucleat RBC Rel Count (0.00-0.2) % Eos # (Auto) (0.04-0.54) x10^3/uL Immature Gran # (Auto) (0.001-0.031) x10^3u/L Absolute Lymphs (auto) (1.32-3.57) x10^3/uL Absolute Monos (auto) (0.30-0.82) x10^3/uL Absolute Nucleated RBC (0.00-0.012) x10^3u/L Lymphocytes % (21.8-53.1) % Monocytes % (5.3-12.2) % Eosinophils % (0.8-7.0) % Basophils % (0.2-1.2) % Absolute Granulocytes (1.78-5.38) x10^3/uL Basophils # (0.01-0.08) x10^3/uL Sodium (135-145) mmol/L Potassium (3.5-5.1) mmol/L Chloride (98-107) mmol/L Carbon Dioxide (22-30) mmol/L Anion Gap (5-15) MEQ/L BUN (9-20) mg/dL Creatinine (0.66-1.25) mg/dL Estimated GFR ML/MIN Glucose (74-106) mg/dL Lactic Acid 0.9 (0.4-2.0) Calcium (8.4-10.2) mg/dL Total Bilirubin (0.2-1.3) mg/dL AST (17-59) U/L ALT (0-50) U/L Alkaline Phosphatase (38-126) U/L Troponin I (0.000-0.033) ng/mL Serum Total Protein (6.3-8.2) g/dL Albumin (3.5-5.0) g/dL Amylase (30-110) U/L Lipase (23-300) U/L Urine Color YELLOW (YELLOW) Urine Appearance CLEAR (CLEAR) Urine pH 7.5 (5-6) Ur Specific Aydlett 1.025 (1.005-1.025) POC Urine Protein Conf TRACE A (Negative) Urine Ketones NEGATIVE (NEGATIVE) Urine Nitrite NEGATIVE (NEGATIVE) Urine Bilirubin NEGATIVE (NEGATIVE) Urine Urobilinogen 1 A (0-1) mg/dL Urine Leukocytes NEGATIVE (NEGATIVE) U Hyaline Cast (Auto) NONE SEEN (0-2) /LPF Urine RBC NEGATIVE (0-5) Rufino/ul Urine Microscopic RBC 0-2 (0-5) /HPF Urine Microscopic WBC 0-2 (0-5) /HPF Ur Epithelial Cells None Seen (None Seen) /HPF Urine Bacteria None Seen (None Seen) /HPF Urine Culture Reflexed NO (NO) Urine Glucose NEGATIVE (NEGATIVE) mg/dL Urine Opiates Level NEGATIVE (NEGATIVE) Ur Methadone NEGATIVE (NEGATIVE) Urine Barbiturates NEGATIVE (NEGATIVE) Ur Phencyclidine (PCP) NEGATIVE (NEGATIVE) Urine Amphetamine NEGATIVE (NEGATIVE) U Benzodiazepine Level NEGATIVE (NEGATIVE) Urine Cocaine NEGATIVE (NEGATIVE) Urine Marijuana (THC) NEGATIVE (NEGATIVE) 02/08/24 02/08/24 02/08/24 Range/Units 11:29 11:29 11:29 WBC 4.3 (4.23-9.07) x10^3/uL RBC 5.17 (4.63-6.08) x10^6/uL Hgb 14.5 (13.7-17.5) g/dL Hct 43.4 (40.1-51.0) % MCV 83.9 (79.0-92.2) fL MCH 28.0 (25.7-32.2) pg MCHC 33.4 (32.3-36.5) g/dL RDW 12.6 (11.6-14.4) % Plt Count 294 (163-337) x10^3/uL MPV 8.8 L (9.4-12.4) fL Gran % 68.8 H (34.0-67.9) % Immature Gran % (Auto) 0.5 H (0.001-0.429) % Nucleat RBC Rel Count 0.0 (0.00-0.2) % Eos # (Auto) 0.05 (0.04-0.54) x10^3/uL Immature Gran # (Auto) 0.02 (0.001-0.031) x10^3u/L Absolute Lymphs (auto) 1.05 L (1.32-3.57) x10^3/uL Absolute Monos (auto) 0.21 L (0.30-0.82) x10^3/uL Absolute Nucleated RBC 0.00 (0.00-0.012) x10^3u/L Lymphocytes % 24.2 (21.8-53.1) % Monocytes % 4.8 L (5.3-12.2) % Eosinophils % 1.2 (0.8-7.0) % Basophils % 0.5 (0.2-1.2) % Absolute Granulocytes 2.99 (1.78-5.38) x10^3/uL Basophils # 0.02 (0.01-0.08) x10^3/uL Sodium 140 (135-145) mmol/L Potassium 4.3 (3.5-5.1) mmol/L Chloride 105 (98-107) mmol/L Carbon Dioxide 26 (22-30) mmol/L Anion Gap 13.6 (5-15) MEQ/L BUN 9 (9-20) mg/dL Creatinine 0.83 (0.66-1.25) mg/dL Estimated GFR 126.9 ML/MIN Glucose 98 (74-106) mg/dL Lactic Acid (0.4-2.0) Calcium 10.0 (8.4-10.2) mg/dL Total Bilirubin 0.70 (0.2-1.3) mg/dL AST 28 (17-59) U/L ALT 39 (0-50) U/L Alkaline Phosphatase 61 (38-126) U/L Troponin I < 0.012 (0.000-0.033) ng/mL Serum Total Protein 7.7 (6.3-8.2) g/dL Albumin 4.5 (3.5-5.0) g/dL Amylase 61 (30-110) U/L Lipase 56 (23-300) U/L Urine Color (YELLOW) Urine Appearance (CLEAR) Urine pH (5-6) Ur Specific Aydlett (1.005-1.025) POC Urine Protein Conf (Negative) Urine Ketones (NEGATIVE) Urine Nitrite (NEGATIVE) Urine Bilirubin (NEGATIVE) Urine Urobilinogen (0-1) mg/dL Urine Leukocytes (NEGATIVE) U Hyaline Cast (Auto) (0-2) /LPF Urine RBC (0-5) Rufino/ul Urine Microscopic RBC (0-5) /HPF Urine Microscopic WBC (0-5) /HPF Ur Epithelial Cells (None Seen) /HPF Urine Bacteria (None Seen) /HPF Urine Culture Reflexed (NO) Urine Glucose (NEGATIVE) mg/dL Urine Opiates Level (NEGATIVE) Ur Methadone (NEGATIVE) Urine Barbiturates (NEGATIVE) Ur Phencyclidine (PCP) (NEGATIVE) Urine Amphetamine (NEGATIVE) U Benzodiazepine Level (NEGATIVE) Urine Cocaine (NEGATIVE) Urine Marijuana (THC) (NEGATIVE) - Progress Progress: improved Progress Note: 02/08/24 14:02 Nursing notes and vital signs reviewed. No food or housing insecurity noted. All lab results thoroughly reviewed and shared with patient. Patient given 1 L normal saline bolus and 4 mg IV Zofran with improvement in condition. There was no nausea or vomiting while patient was in the ER. Ab domen was soft With very minimal epigastric tenderness palpation without guarding or rebound throughout throughout his ER stay. Patient has chronic nausea and vomiting of undetermined etiology but could be possibly due to his psychiatric medication. Appointment for 02/10/2024 at [facility] with Dr. Stone, his PCP, obtained. Patient discharged in stable condition with prescription for Compazine 5 mg p.o. q.every 6 hours as needed for nausea vomiting sent to patient's pharmacy. He was advised to return to the ER for increasing abdominal pain, inability to hold down fluids, or temperature greater 100.5. 02/08/24 14:05 Counseled pt/family regarding: lab results, diagnosis, need for follow-up Medical Desision Making - Diagnostic Testing Diagnostic test were ordered, analyzed, and reviewed by me: Yes - Risk of complications The pt has a mod risk of morbidity or mortality based on: Need for prescription drug management - Departure Departure Disposition: Home Clinical Impression: Chronic nausea Condition: Stable Critical Care Time: No Referrals: LORY STONE MD [Primary Care Provider] - Follow up/PCP as directed Instructions: Nausea and Vomiting, Adult ED Additional Instructions: Fluids Compazine every 6 hours as needed for nausea above Dr. Stone 02/17/24 3:15PM Return to ER for increasing abdominal pain, inability to hold down fluids, or temperature greater 100.5. Forms: Work/School Release Form Prescriptions: Prochlorperazine Maleate 5 mg* [Compazine 5 MG] 5 mg PO Q6H PRN PRN #15 tablet PRN Reason: Nausea/Vomiting
[2024-02-08 11:33] LABS: Absolute Neutrophil Ct (ANC) 2.99 x10^3/uL (1.78-5.38); BASOPHIL % 0.5 % (0.2-1.2); Basophil (Absolute #) 0.02 x10^3/uL (0.01-0.08); Eosinophil % 1.2 % (0.8-7.0); Eosinophil (Absolute #) 0.05 x10^3/uL (0.04-0.54); Hematocrit 43.4 % (40.1-51.0); Hemoglobin 14.5 g/dL (13.7-17.5); IMMATURE GRAN # 0.02 x10^3u/L (0.001-0.031); IMMATURE GRAN % 0.5 % (0.001-0.429); Lymphocyte (Absolute #) 1.05 x10^3/uL (1.32-3.57); Lymphocytes % 24.2 % (21.8-53.1); Mean Cell Volume 83.9 fL (79.0-92.2); Mean Corpuscular Hgb Concent. 33.4 g/dL (32.3-36.5); Mean Platelet Volume 8.8 fL (9.4-12.4); Monocyte (Absolute #) 0.21 x10^3/uL (0.30-0.82); Monocytes % 4.8 % (5.3-12.2); Neutrophil % 68.8 % (34.0-67.9); Platelet Count 294 x10^3/uL (163-337); Red Blood Count 5.17 x10^6/uL (4.63-6.08); Red Cell Distribution Width 12.6 % (11.6-14.4); White Blood Count 4.3 x10^3/uL (4.23-9.07)
[2024-02-08 11:44] LABS: ALBUMIN 4.5 g/dL (3.5-5.0); ANION GAP 13.6 MEQ/L (5-15); BILIRUBIN,TOTAL 0.7 mg/dL (0.2-1.3); Creatinine 1 0.83 mg/dL (0.66-1.25); EST GLOMERULAR FILTRATION RATE 126.9 ML/MIN; Potassium 4.3 mmol/L (3.5-5.1); Total Protein 7.7 g/dL (6.3-8.2)
[2024-02-08] MEDS ORDERED: Sodium Chloride 0.9% 1000 ML 1,000 ML ONE (12:44)
[2024-02-08] MEDS ORDERED: Zofran 4 MG/2 ML VIAL ONE (12:44)
[2024-02-08] MEDS: Sodium Chloride 0.9% 1000 ML 1,000 ML IV STA (12:45)
[2024-02-08] MEDS: Zofran 4 MG/2 ML VIAL IV ONE (12:48)
[2024-02-08 13:05] LABS: Bacteria None Seen /HPF (None Seen); Epithelial Cells None Seen /HPF (None Seen); Hyaline Casts NONE SEEN /LPF (0-2); RBC 0-2 /HPF (0-5); WBC 0-2 /HPF (0-5)
[2024-02-08 13:06] LABS: Appearance CLEAR (CLEAR); Bilirubin NEGATIVE (NEGATIVE); Glucose NEGATIVE (NEGATIVE); Ketones NEGATIVE (NEGATIVE); Nitrite NEGATIVE (NEGATIVE); Ph 7.5 (5-6); Protein,Urine Dip TRACE (Negative); RBC NEGATIVE Ery/ul (0-5); Specific Gravity 1.025 (1.005-1.025); Urobilinogen 1 mg/dL (0-1)
[2024-02-08 13:10] LABS: ADD URINE CULTURE? NO (NO)
[2024-02-08 13:21] LABS: Amphetamine,Urine NEGATIVE (NEGATIVE); Barbiturate,Urine NEGATIVE (NEGATIVE); Benzodiazepine,Urine NEGATIVE (NEGATIVE); Cocaine,Urine NEGATIVE (NEGATIVE); Methadone,Urine NEGATIVE (NEGATIVE); Opiate,Urine NEGATIVE (NEGATIVE); PCP,Urine NEGATIVE (NEGATIVE); THC,Urine NEGATIVE (NEGATIVE)
[2024-02-08 13:28] VITALS: O2SAT 96
[2024-02-08 13:41] VITALS: BP 115/76; PULSE 78
== END 2024-02-08 14:02 | disposition home or self-care (01) ==
LOC: ED 10:15
DX: R11.2 Nausea with vomiting, unspecified (principal); R10.13 Epigastric pain; Z79.899 Other long term (current) drug therapy
CPT/HCPCS: 36000; 36415; 80053; 80307; 81015; 82150; 83605; 83690; 84484; 85025; 96360; 96374; 99284; J2405

== ENCOUNTER 2024-02-25 05:50 | Day surgery (SDC) | payer BC ==
[2024-02-25] MEDS: Lactated Ringers 1,000 ML IV SCH (06:25)
[2024-02-25] MEDS ORDERED: Versed 2 MG/2 ML Injection ONE (07:47)
[2024-02-25] MEDS ORDERED: SUBLIMAZE 100 MCG/2 ML ONE (07:47)
[2024-02-25] MEDS ORDERED: DIPRIVAN 200 MG/20 ML IV ONE (07:47)
[2024-02-25 08:46] VITALS: RESP 16; TEMP 98.3; O2SAT 97
[2024-02-25 09:03] VITALS: BP 113/79; PULSE 84
--- NOTE | 2024-02-26 12:13 | OP ---
SURGERY DATE/TIME: 02/25/2024 0851 - 0801 PREOPERATIVE DIAGNOSIS: Persistent nausea and vomiting. POSTOPERATIVE DIAGNOSIS: Moderate gastritis. PROCEDURE: Esophagogastroduodenoscopy. SURGEON: Juan Daniel Arevalo MD ANESTHESIA: MAC by Praneeth Vegas CRNA ESTIMATED BLOOD LOSS: Minimal. SPECIMENS: There are 2 cold forceps biopsies from the gastric antrum. DESCRIPTION OF PROCEDURE AND FINDINGS: After informed written consent was obtained, the patient was taken to the endoscopy suite. He was placed in the left lateral decubitus position and a bite block was inserted. Anesthesia was titrated to desired level of consciousness, and then the endoscope was inserted in the posterior oropharynx. Under direct visualization, the esophagus was easily traversed. This had a normal mucosal appearance. Upon entry into the stomach, there was a normal GE junction with crisp Z-line. Gastric mucosa had a normal rugated appearance. No obvious lesions or defects. The area of the gastric antrum was inspected and noted to have moderate gastritis-type changes with an area that was very small of superficial ulceration that was essentially healed over with no active bleeding. Pylorus was traversed, and the first and second portions of the duodenum had a normal mucosal appearance. Two cold forceps biopsies were then taken from the gastric antrum, sent for H pylori testing. There was minimal blood loss. Scope was then removed, and the remainder of the mucosal structures appeared normal upon withdrawal as well. Scope was removed, and patient was transferred to the recovery room in good condition. Specimens were sent for pathology, and he has been advised to follow up in 1 week.
== END 2024-02-25 09:12 | disposition home or self-care (01) ==
LOC: SDC 05:50
PROVIDERS: ATTEND Family Medicine
DX: K29.70 Gastritis, unspecified, without bleeding (principal); R11.2 Nausea with vomiting, unspecified
CPT/HCPCS: 93005; J2250; J2704; J3010

== ENCOUNTER 2024-05-09 20:06 | Emergency (ER) | payer BC ==
--- NOTE | 2024-05-09 20:14 | ERPHSYRPT ---
- History of Present Illness Time Seen by Provider: 05/09/24 20:14 Source: patient, family Exam Limitations: no limitations Physician History: This is a 24-year-old white male patient of Dr. Stone who presents to the emergency department by private vehicle. The patient has a history of SVT and is status post ablation in the past. Occasionally he will have palpitations. This is much improved over prior to that his cardiac ablation. Today, earlier, he had a systolic blood pressure of over 200 as well as headache, dizziness and brief visual changes that resolved completely on their own. In addition he complains of some generalized body aches as well as numbness in his bilateral upper and bilateral lower extremities which have improved but is still present. Patient has a history of gastroesophageal reflux disease, asthma, anxiety and bipolar disorder. He describes his headache as generalized and intermittent throbbing pressure. He does not have chest pain. He does not have shortness of breath. He does not have abdominal pain. Timing/Duration: today Severity: mild (Moderate) Associated Symptoms: weakness, other (Generalized weakness and numbness. Generalized aches and pains, headache, dizziness and visual changes, palpitations) Allergies/Adverse Reactions: amoxicillin Allergy (Intermediate, Verified 05/09/24 21:23) Rash Home Medications: Budesonide/Formoterol Fumarate [Breyna 160-4.5 Mcg Inhaler] 1 puff NEB Q12H PRN PRN 02/08/24 [History] Omeprazole 20 mg PO DAILY 02/08/24 [History] Albuterol Sulfate [Albuterol Sulfate Hfa] 8.5 gm IH UD 02/19/24 [History] Trazodone HCl 100 mg PO HS 02/19/24 [History] Benztropine Mesylate 1 mg PO BID 05/09/24 [History] [place] Carbonate 150 cap PO DAILY 05/09/24 [History] Hx Tetanus, Diphtheria Vaccination/Date Given: Yes Hx Influenza Vaccination/Date Given: No Hx Pneumococcal Vaccination/Date Given: No Travel Risk - International Travel Have you traveled outside of the country in past 3 weeks: No - Emerging Infectious Disease Are you exhibiting symptoms associated with any current EIDs: Yes Symptoms: Abdominal Pain, Headaches/Body Aches/ - Review of Systems Constitutional: Weakness Eyes: Vision Changes (Earlier today. Symptoms have now resolved completely) Ears, Nose, & Throat: No Symptoms Respiratory: No Symptoms Cardiac: Palpitations Abdominal/Gastrointestinal: No Symptoms Genitourinary Symptoms: No Symptoms Musculoskeletal: Arthralgias, Myalgias Skin: No Symptoms Neurological: Dizziness, Headache Psychological: Anxiety Endocrine: No Symptoms Hematologic/Lymphatic: No Symptoms Immunological/Allergic: No Symptoms All Other Systems: Reviewed and Negative - Past Medical History Pertinent Past Medical History: Yes Cardiac History: Arrhythmia Respiratory History: Asthma Psycho-Social History: Anxiety, Bipolar, Depression Male Reproductive Disorders: No Pertinent History Other Medical History: SVT - Past Surgical History Past Surgical History: Yes Cardiac: Other Other Surgical History: cardiac ablation Significant Family History: no pertinent family hx - Social History Smoking Status: Former smoker Exposure to second hand smoke: No Drug Use: none Patient Lives Alone: No - Social Determinants of Health Will the patient participate in the screening: Yes Do you worry about a steady place to live?: No In the past 12 months,have you had to go without utilities?: No Transportation Issues: No Has anyone in your support network made you feel unsafe?: No Have you or anyone in your house had to go without enough: No - Nursing Vital Signs Nursing Vital Signs: Initial Vital Signs Temperature 98.5 F 05/09/24 21:06 Pulse Rate 84 05/09/24 21:06 Respiratory Rate 20 05/09/24 21:06 Blood Pressure 143/90 05/09/24 21:06 O2 Sat by Pulse Oximetry 99 05/09/24 21:06 Pain Scale Pain Intensity 6 - Physical Exam General Appearance: no apparent distress, alert, anxiety, thin Eye Exam: PERRL/EOMI, eyes nml inspection Ears, Nose, Throat Exam: normal ENT inspection, moist mucous membranes Neck Exam: normal inspection, non-tender, supple, full range of motion Respiratory Exam: normal breath sounds, lungs clear, airway intact, No chest tenderness, No respiratory distress Cardiovascular Exam: regular rate/rhythm, normal heart sounds, normal peripheral pulses Gastrointestinal/Abdomen Exam: soft, normal bowel sounds, No tenderness Rectal Exam: not done Back Exam: normal inspection, normal range of motion, No CVA tenderness, No vertebral tenderness Extremity Exam: normal inspection, normal range of motion, pelvis stable Neurologic Exam: alert, oriented x 3, 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, 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, nml cerebellar function, nml station & gait, sensation nml Skin Exam: normal color, warm, dry Lymphatic Exam: No adenopathy SpO2 Interpretation: normal O2 Delivery: Room Air - Course Nursing assessment & vital signs reviewed: Yes EKG Interpreted by Me: RATE ([id number]), Sinus Rhythm, NORMAL AXIS, NORMAL INTERVALS, NORMAL QRS, NORMAL ST-T, Other (No acute ischemic changes on today's twelve-lead EKG.) Ordered Tests: Active Orders 24 hr Category Date Time 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 05/09/24 22:27 Active EKG-ER Only STAT Care 05/09/24 22:27 Active IV Insertion STAT Care 05/09/24 22:27 Active NPO (ED) STAT Care 05/09/24 22:27 Active Pulse Oximetry (ED) STAT Care 05/09/24 22:27 Active HEAD WITHOUT CONTRAST [CT] Stat Exams 05/09/24 22:27 Completed CBC W DIFF Stat Lab 05/09/24 22:35 Completed CMP Stat Lab 05/09/24 22:35 Completed MONO SCREEN Stat Lab 05/09/24 22:35 Completed TROPONIN Q4H Lab 05/09/24 22:35 Completed UA W/RFX UR CULTURE Stat Lab 05/09/24 21:00 Completed Medication Summary Discontinued Medications Generic Name Dose Route Start Last Admin Trade Name Balaji PRN Reason Stop Dose Admin Acetaminophen 650 mg 05/09/24 23:08 05/09/24 23:10 Acetaminophen 325 Mg Tablet PO 05/09/24 23:09 650 mg STAT ONE Administration Acetaminophen Confirm 05/09/24 23:10 Acetaminophen 325 Mg Tablet Administered 05/09/24 23:11 Dose 650 mg .ROUTE .STK-MED ONE Lab/Rad Data: Laboratory Result Diagrams 05/09/24 22:35 05/09/24 22:35 Laboratory Results 05/09/24 05/09/24 05/09/24 Range/Units 22:35 22:35 22:35 WBC (4.23-9.07) x10^3/uL RBC (4.63-6.08) x10^6/uL Hgb (13.7-17.5) g/dL Hct (40.1-51.0) % MCV (79.0-92.2) fL MCH (25.7-32.2) pg MCHC (32.3-36.5) g/dL RDW (11.6-14.4) % Plt Count (163-337) x10^3/uL MPV (9.4-12.4) fL Gran % (34.0-67.9) % Immature Gran % (Auto) (0.001-0.429) % Nucleat RBC Rel Count (0.00-0.2) % Eos # (Auto) (0.04-0.54) x10^3/uL Immature Gran # (Auto) (0.001-0.031) x10^3u/L Absolute Lymphs (auto) (1.32-3.57) x10^3/uL Absolute Monos (auto) (0.30-0.82) x10^3/uL Absolute Nucleated RBC (0.00-0.012) x10^3u/L Lymphocytes % (21.8-53.1) % Monocytes % (5.3-12.2) % Eosinophils % (0.8-7.0) % Basophils % (0.2-1.2) % Absolute Granulocytes (1.78-5.38) x10^3/uL Basophils # (0.01-0.08) x10^3/uL Sodium 139 (135-145) mmol/L Potassium 4.1 (3.5-5.1) mmol/L Chloride 102 (98-107) mmol/L Carbon Dioxide 29 (22-30) mmol/L Anion Gap 12.1 (5-15) MEQ/L BUN 11 (9-20) mg/dL Creatinine 0.83 (0.66-1.25) mg/dL Estimated GFR 126.1 ML/MIN Glucose 86 (74-106) mg/dL Calcium 10.2 (8.4-10.2) mg/dL Total Bilirubin 0.60 (0.2-1.3) mg/dL AST 31 (17-59) U/L ALT 47 (0-50) U/L Alkaline Phosphatase 72 (38-126) U/L Troponin I < 0.012 (0.000-0.033) ng/mL Serum Total Protein 7.7 (6.3-8.2) g/dL Albumin 4.7 (3.5-5.0) g/dL Urine Color (Yellow) Urine Appearance (Clear) Urine pH (4.6-8.0) Ur Specific [place] (1.005-1.030) Urine Protein (Negative) Urine Glucose (UA) (Negative) mg/dL Urine Ketones (Negative) Urine Blood (Negative) Urine Nitrite (Negative) Urine Bilirubin (Negative) Urine Urobilinogen (0.2) mg/dL Ur Leukocyte Esterase (Negative) U Hyaline Cast (Auto) (0-2) /LPF Urine Microscopic RBC (0-5) /HPF Urine Microscopic WBC (0-5) /HPF Ur Epithelial Cells (None Seen) /HPF Urine Bacteria (None Seen) /HPF Urine Culture Reflexed (NO) Monoscreen NEGATIVE (NEGATIVE) 05/09/24 05/09/24 Range/Units 22:35 21:00 WBC 8.4 (4.23-9.07) x10^3/uL RBC 5.61 (4.63-6.08) x10^6/uL Hgb 15.6 (13.7-17.5) g/dL Hct 45.5 (40.1-51.0) % MCV 81.1 (79.0-92.2) fL MCH 27.8 (25.7-32.2) pg MCHC 34.3 (32.3-36.5) g/dL RDW 12.6 (11.6-14.4) % Plt Count 337 (163-337) x10^3/uL MPV 8.5 L (9.4-12.4) fL Gran % 63.0 (34.0-67.9) % Immature Gran % (Auto) 0.4 (0.001-0.429) % Nucleat RBC Rel Count 0.0 (0.00-0.2) % Eos # (Auto) 0.16 (0.04-0.54) x10^3/uL Immature Gran # (Auto) 0.03 (0.001-0.031) x10^3u/L Absolute Lymphs (auto) 2.46 (1.32-3.57) x10^3/uL Absolute Monos (auto) 0.42 (0.30-0.82) x10^3/uL Absolute Nucleated RBC 0.00 (0.00-0.012) x10^3u/L Lymphocytes % 29.3 (21.8-53.1) % Monocytes % 5.0 L (5.3-12.2) % Eosinophils % 1.9 (0.8-7.0) % Basophils % 0.4 (0.2-1.2) % Absolute Granulocytes 5.31 (1.78-5.38) x10^3/uL Basophils # 0.03 (0.01-0.08) x10^3/uL Sodium (135-145) mmol/L Potassium (3.5-5.1) mmol/L Chloride (98-107) mmol/L Carbon Dioxide (22-30) mmol/L Anion Gap (5-15) MEQ/L BUN (9-20) mg/dL Creatinine (0.66-1.25) mg/dL Estimated GFR ML/MIN Glucose (74-106) mg/dL Calcium (8.4-10.2) mg/dL Total Bilirubin (0.2-1.3) mg/dL AST (17-59) U/L ALT (0-50) U/L Alkaline Phosphatase (38-126) U/L Troponin I (0.000-0.033) ng/mL Serum Total Protein (6.3-8.2) g/dL Albumin (3.5-5.0) g/dL Urine Color Yellow (Yellow) Urine Appearance Clear (Clear) Urine pH 6.0 (4.6-8.0) Ur Specific [place] 1.015 (1.005-1.030) Urine Protein Negative (Negative) Urine Glucose (UA) Negative (Negative) mg/dL Urine Ketones Negative (Negative) Urine Blood Negative (Negative) Urine Nitrite Negative (Negative) Urine Bilirubin Negative (Negative) Urine Urobilinogen 0.2 (0.2) mg/dL Ur Leukocyte Esterase Negative (Negative) U Hyaline Cast (Auto) NONE SEEN (0-2) /LPF Urine Microscopic RBC 0-2 (0-5) /HPF Urine Microscopic WBC 0-2 (0-5) /HPF Ur Epithelial Cells None Seen (None Seen) /HPF Urine Bacteria None Seen (None Seen) /HPF Urine Culture Reflexed NO (NO) Monoscreen (NEGATIVE) - Progress Progress: improved, re-examined Progress Note: 05/09/24 23:00 My medical decision making and the assignment of moderate complexity to this patient's medical issue today is based on review of the patient's past medical history, review of the patient's medication list, reviewed patient drug allergy list, history present illness and physical findings on examination. The workup includes placement of intravenous line, CBC, CMP, troponin level, twelve-lead EKG, CT scan of the head without contrast, viral swabs, magnesium level, and urinalysis Differential diagnosis includes but is not limited to myocardial infarction, arrhythmia, electrolyte abnormalities, urinary tract infection, dehydration 05/09/24 23:42 I interpreted the patient's laboratory data results. Based on the laboratory data results, the patient does not have an acute, emergent medical issue. The CT scan of the head was interpreted by the radiologist and I reviewed the impression. The impression states normal CT scan of the head without contrast. No acute pathology identified. Counseled pt/family regarding: lab results, diagnosis, need for follow-up, rad results Medical Desision Making - Diagnostic Testing Diagnostic test were ordered, analyzed, and reviewed by me: Yes Radiological Interpretation: Reviewed by me, Teleradiologist Report - Risk of complications Low Risk: Low risk of morbidity from additional dx testing or treatment - Departure Departure Disposition: Home Clinical Impression: Anxiety about health, Headache, Numbness and tingling Condition: Stable Critical Care Time: No Referrals: LORY STONE MD [Primary Care Provider] - Follow up/PCP as directed Additional Instructions: Call your primary care provider and telecommunications technician today, 05/10/2024 to make arrangements for follow-up appointment and to be seen in the next 5 to 7 days for reevaluation.
[2024-05-09 21:23] VITALS: TEMP 98.5
[2024-05-09 22:49] LABS: Absolute Neutrophil Ct (ANC) 5.31 x10^3/uL (1.78-5.38); BASOPHIL % 0.4 % (0.2-1.2); Basophil (Absolute #) 0.03 x10^3/uL (0.01-0.08); Eosinophil % 1.9 % (0.8-7.0); Eosinophil (Absolute #) 0.16 x10^3/uL (0.04-0.54); Hematocrit 45.5 % (40.1-51.0); Hemoglobin 15.6 g/dL (13.7-17.5); IMMATURE GRAN # 0.03 x10^3u/L (0.001-0.031); IMMATURE GRAN % 0.4 % (0.001-0.429); Lymphocyte (Absolute #) 2.46 x10^3/uL (1.32-3.57); Lymphocytes % 29.3 % (21.8-53.1); Mean Cell Volume 81.1 fL (79.0-92.2); Mean Corpuscular Hemoglobin 27.8 pg (25.7-32.2); Mean Corpuscular Hgb Concent. 34.3 g/dL (32.3-36.5); Mean Platelet Volume 8.5 fL (9.4-12.4); Monocyte (Absolute #) 0.42 x10^3/uL (0.30-0.82); Platelet Count 337 x10^3/uL (163-337); Red Blood Count 5.61 x10^6/uL (4.63-6.08); Red Cell Distribution Width 12.6 % (11.6-14.4); White Blood Count 8.4 x10^3/uL (4.23-9.07)
[2024-05-09 23:01] LABS: ALBUMIN 4.7 g/dL (3.5-5.0); ANION GAP 12.1 MEQ/L (5-15); BILIRUBIN,TOTAL 0.6 mg/dL (0.2-1.3); Calcium 10.2 mg/dL (8.4-10.2); Creatinine 1 0.83 mg/dL (0.66-1.25); EST GLOMERULAR FILTRATION RATE 126.1 ML/MIN; Potassium 4.1 mmol/L (3.5-5.1); Total Protein 7.7 g/dL (6.3-8.2)
[2024-05-09 23:01] LABS: Appearance Clear (Clear); Bacteria None Seen /HPF (None Seen); Bilirubin Negative (Negative); Blood Negative (Negative); Epithelial Cells None Seen /HPF (None Seen); Glucose, Urine Negative (Negative); Hyaline Casts NONE SEEN /LPF (0-2); Ketones Negative (Negative); Leukocyte Esterase Negative (Negative); Nitrite Negative (Negative); Protein,Urine Dip Negative (Negative); RBC 0-2 /HPF (0-5); Specific Gravity 1.015 (1.005-1.030); Urobilinogen 0.2 mg/dL (0.2); WBC 0-2 /HPF (0-5)
[2024-05-09 23:02] LABS: ADD URINE CULTURE? NO (NO)
[2024-05-09 23:06] VITALS: O2SAT 100
[2024-05-09] MEDS ORDERED: TYLENOL 325 MG ONE (23:10)
[2024-05-09] MEDS: TYLENOL 325 MG PO ONE (23:10)
--- NOTE | 2024-05-09 23:26 | XRAY ---
CLINICAL HISTORY: Headache, dizziness, visual changes COMPARISON: NONE TECHNIQUE: Axial non-contrast CT scan of the brain was performed from the skull base to the high parietal region. One of the following dose reduction techniques were utilized for this exam: Automated exposure control, adjustment of the mA and/or kV according to patient size, use of iterative reconstruction. FINDINGS: Brain Parenchyma: Normal attenuation of the cerebral hemispheres, cerebellum, and brainstem. No evidence of acute infarct, hemorrhage, or mass effect. No abnormal areas of hypo- or hyperattenuation. Ventricular System: Ventricles are normal in size and configuration. No evidence of hydrocephalus or ventricular enlargement. Subarachnoid Spaces: Normal sulci and cisterns. No evidence of subarachnoid hemorrhage or extra-axial fluid collections. Cerebellum and Brainstem: Normal size and signal. No masses, lesions, or areas of abnormal signal. Orbits: Normal appearance of the globes, optic nerves, and extraocular muscles. No evidence of orbital masses or abnormal signal. Sinuses: Clear paranasal sinuses. No evidence of sinusitis or mucosal thickening. Mastoid Air Cells: Clear mastoid air cells. No evidence of mastoiditis. Skull and Meninges: Normal skull morphology. No evidence of meningeal thickening. IMPRESSION: 1. Normal CT of the head without contrast. 2. No acute pathology is identified. Electronically Signed by: Peter Goff MD. (05/09/2024 23:22:32 EDT)
[2024-05-09 23:56] LABS: INFLUENZA A NEGATIVE (NEGATIVE); INFLUENZA B NEGATIVE (NEGATIVE); RESPIRATORY SYNCTIAL VIRUS NEGATIVE (NEGATIVE); SARS-CoV-2 Xpert Express NEGATIVE (NEGATIVE)
[2024-05-10 00:11] VITALS: BP 118/91; PULSE 69; RESP 17
== END 2024-05-10 00:20 | disposition home or self-care (01) ==
LOC: ED 20:06
DX: R51.9 Headache, unspecified (principal); R20.0 Anesthesia of skin; F41.9 Anxiety disorder, unspecified; Z86.79 Personal history of other diseases of the circulatory system; Z79.899 Other long term (current) drug therapy
CPT/HCPCS: 0241U; 36000; 36415; 70450; 80053; 81001; 84484; 85025; 86308; 93005; 93041; 94760; 99284; A9270-GY

== ENCOUNTER 2024-10-15 18:31 | Emergency (ER) | payer BC, OTHER ==
[2024-10-15 18:43] VITALS: TEMP 97
[2024-10-15 19:18] VITALS: RESP 18
--- NOTE | 2024-10-15 19:20 | ERPHSYRPT ---
- History of Present Illness Source: patient Exam Limitations: no limitations Patient Subjective Stated Complaint: pt is worried about he's blood pressure at work today, denies chest pain, but states hes left ribs hurt. some nausea today, Triage Nursing Assessment: pt alert, walked in, resp easy, skin w/d/p. abd soft, no edema noted, no cough, chest clear, Physician History: Patient is in today because he was worried about his blood pressure is about 140/85. He also had some discomfort in his abdomen. It is In the left upper quadrant. It is resolved. He gets worse with palpation deep into the tissue. He has not had any shortness of breath. He said he also feels little flushed in his face. He has a history of DVTs and has had a cardiac ablation. Has not had any rhythm disturbances. Has not had any chest pain. He is had no fever chills or infectious symptoms. He has no rash. No neurological deficits.His family was worried about his blood pressure being high and they told him to come in. He says he really does not feel like he needs to be here. He is not currently having any chest pain.Nothing really makes his symptoms better or worse. Allergies/Adverse Reactions: amoxicillin Allergy (Intermediate, Verified 10/15/24 18:37) Rash Home Medications: Omeprazole 20 mg PO DAILY 02/08/24 [History] Albuterol Sulfate [Albuterol Sulfate Hfa] 8.5 gm IH UD 02/19/24 [History] Trazodone HCl 100 mg PO HS 02/19/24 [History] Benztropine Mesylate 1 mg PO BID 05/09/24 [History] [place] Carbonate 150 cap PO DAILY 05/09/24 [History] Carvedilol 3.125 mg [Coreg 3.125 MG] 3.125 mg PO BID 10/15/24 [History] Hx Tetanus, Diphtheria Vaccination/Date Given: Yes Hx Influenza Vaccination/Date Given: No Hx Pneumococcal Vaccination/Date Given: No Immunizations Up to Date: Yes Travel Risk - International Travel Have you traveled outside of the country in past 3 weeks: No - Emerging Infectious Disease Are you exhibiting symptoms associated with any current EIDs: No Symptoms: Abdominal Pain, Headaches/Body Aches/ - Review of Systems Constitutional: No Symptoms Eyes: No Symptoms All Other Systems: Reviewed and Negative - Past Medical History Pertinent Past Medical History: Yes Neurological History: No Pertinent History ENT History: No Pertinent History Cardiac History: Arrhythmia, Hypertension Respiratory History: Asthma Endocrine Medical History: Other Musculoskeletal History: No Pertinent History GI Medical History: GERD, Ulcer History: No Pertinent History Psycho-Social History: Anxiety, Bipolar, Depression Male Reproductive Disorders: No Pertinent History Other Medical History: CHOLESTEROL, MONITORING THYROID, EMERGENCY INHALER, SUPERVENTRICULAR TACHYCARDIA. HX OF R ANKLE INSTABILITY. - Past Surgical History Past Surgical History: Yes Cardiac: Other Other Surgical History: cardiac ablation Significant Family History: no pertinent family hx - Social History Smoking Status: Former smoker Exposure to second hand smoke: No Drug Use: none - Social Determinants of Health Will the patient participate in the screening: Yes Do you worry about a steady place to live?: No Do you have any problems with any of the following?: No known problems In the past 12 months,have you had to go without utilities?: No Transportation Issues: No Has anyone in your support network made you feel unsafe?: No Have you or anyone in your house had to go w/o enough food: No - Nursing Vital Signs Nursing Vital Signs: Initial Vital Signs Temperature 97.0 F 10/15/24 18:41 Pulse Rate 95 H 10/15/24 18:41 Respiratory Rate 22 10/15/24 18:41 Blood Pressure 144/95 10/15/24 18:41 O2 Sat by Pulse Oximetry 99 10/15/24 18:41 Pain Scale Pain Intensity 4 - Physical Exam General Appearance: no apparent distress Eye Exam: PERRL/EOMI, eyes nml inspection Ears, Nose, Throat Exam: normal ENT inspection, pharynx normal Neck Exam: normal inspection Respiratory Exam: normal breath sounds, lungs clear, No chest tenderness, No respiratory distress Cardiovascular Exam: regular rate/rhythm, normal heart sounds, normal peripheral pulses Gastrointestinal/Abdomen Exam: soft, normal bowel sounds, tenderness (Left upper quadrant) Neurologic Exam: alert, oriented x 3, cooperative Skin Exam: normal color, warm, dry SpO2: 99 - Course Nursing assessment & vital signs reviewed: Yes EKG Interpreted by Me: RATE, NORMAL AXIS, NORMAL INTERVALS, NORMAL QRS, NORMAL ST-T (Interpreted by me.) - Progress Progress: unchanged Progress Note: Patient was stable throughout stay. His exam was benign. His EKG looked good as independently interpreted by me. His vital signs are stable. I really cannot find anything wrong with him. I asking if he was okay going home and he said yes he did not feel like he should be here to start with. He came Because his family told him to.He may be having some sort of early viral issue. I really do not have a goodExplanation or idea as to why he is here. 10/15/24 19:18 - Departure Departure Disposition: Home Clinical Impression: Abdominal pain Condition: Stable Critical Care Time: No Referrals: LORY STONE MD [Primary Care Provider] - Follow up/PCP as directed Instructions: Abdominal pain
[2024-10-15 19:31] VITALS: BP 135/83; PULSE 87; O2SAT 97
== END 2024-10-15 19:31 | disposition home or self-care (01) ==
LOC: ED 18:31
DX: R10.12 Left upper quadrant pain (principal); I10 Essential (primary) hypertension; Z79.899 Other long term (current) drug therapy
CPT/HCPCS: 93005; 99282; 99283